=== PATIENT | female | born 1980 | race Caucasian/White ===

== ENCOUNTER 2017-05-15 09:25 | Day surgery (SDC) | payer BC ==
[2017-05-15 10:15] VITALS: TEMP 99.8
[2017-05-15] MEDS ORDERED: Lactated Ringer's 500 ML IV ONE (12:21)
[2017-05-15] MEDS ORDERED: Propofol 10 mg/ml Inj (20 ML) ONE (12:28)
[2017-05-15] MEDS ORDERED: Lactated Ringer's 500 ML IV SCH (12:45)
[2017-05-15 14:31] VITALS: BP 100/64; PULSE 72; RESP 20; O2SAT 100
== END 2017-05-15 13:55 | disposition home or self-care (01) ==
LOC: C.ENDO 09:25
PROVIDERS: ATTEND Internal Medicine Gastroenterology
DX: K21.0 Gastro-esophageal reflux disease with esophagitis (principal); K29.70 Gastritis, unspecified, without bleeding
CPT/HCPCS: 43239; 84703; 88305; 88312; 88342; J2704; J7120